=== PATIENT | female | born 1945 | race Caucasian/White ===

== ENCOUNTER 2017-12-22 16:04 | Emergency (ER) | payer MEDICARE ==
[2017-12-22 16:11] VITALS: TEMP 97.5
[2017-12-22] MEDS ORDERED: cloNIDine HCL 0.2 MG TAB PO STA (16:27)
--- NOTE | 2017-12-22 16:32 | ED ---
Recheck HPI - General Chief Complaint: Recheck/Abnormal Lab/Rx Stated Complaint: elevated bp Time Seen by Provider: 12/22/17 16:12 Source: patient Mode of arrival: ambulatory Limitations: no limitations - History of Present Illness Initial Comments: This patient is 72-year-old woman who presents because her blood pressure has been running high today. The patient states that she does normally take her blood pressure at home. She states that for the past couple of weeks it is been running around 140s over upper 50s to 60s. She states that she saw her physician, Dr. Galindo, and that a week or 10 days ago she was started on hydrochlorothiazide. She has a follow-up appointment with Dr. Galindo on Sunday to see if the medication needs to be adjusted. Today her blood pressure was running in the upper 140s, so she was checking the blood pressure about every hour and found that it was continuing to rise and for this reason she felt she should be evaluated. The patient denies having any associated symptoms. She is not having any pain including no headache, chest pain, back, or abdominal pain. The patient is not having any neurologic symptoms. She is not having any dyspnea, diaphoresis, nausea or vomiting, palpitations, lightheadedness or syncope. MD Complaint: other (Elevated blood pressure) -: hour(s) Symptoms Since Prior Visit: no new symptoms Associated Symptoms: none - Related Data Home Medications Medication Instructions Recorded Confirmed Ascorbic Acid [Vitamin C] 1,000 mg PO DAILY 12/22/17 12/22/17 Cholecalciferol (Vitamin D3) 2,000 unit PO DAILY 12/22/17 12/22/17 [Vitamin D3] Glucosam/[place]-Msm1/C/Markel/Bosw 1 tab PO DAILY 12/22/17 12/22/17 [Glucosamine-Chondroitin Tablet] Hydrochlorothiazide [Hydrodiuril] 25 mg PO DAILY 12/22/17 12/22/17 Iron(Unknown) 1 tab PO TUTH 12/22/17 12/22/17 Lecithin, Soy [Lecithin] 400 mg PO DAILY 12/22/17 12/22/17 Meloxicam [Mobic] 15 mg PO DAILY 12/22/17 12/22/17 [place]-3 Fatty Acids/Fish Oil [Fish 1 cap PO DAILY 05/12/18 05/12/18 Oil 1,000 mg Softgel] Omeprazole [PriLOSEC] 20 mg PO DAILY PRN 12/22/17 12/22/17 Selenium 100 mcg PO DAILY 12/22/17 12/22/17 Vitamin A(Unknown) 1 cap PO DAILY 12/22/17 12/22/17 Vitamin B Complex 1 cap PO DAILY 12/22/17 12/22/17 Vitamin E 250iu 500 unit PO DAILY 12/22/17 12/22/17 Allergies Allergy/AdvReac Type Severity Reaction Status Date / Time aspirin Allergy Unknown Verified 12/22/17 16:33 Penicillins Allergy Unknown Verified 12/22/17 16:33 Childhood Review of Systems ROS Statement: Those systems with pertinent positive or pertinent negative responses have been documented in the HPI. ROS Other: All systems not noted in ROS Statement are negative. Constitutional: Denies: weakness Eyes: Denies: vision change Respiratory: Denies: cough, dyspnea Cardiovascular: Denies: chest pain, palpitations, orthopnea, syncope Gastrointestinal: Denies: abdominal pain, nausea, vomiting Musculoskeletal: Denies: back pain Skin: Denies: rash Neurological: Denies: headache, weakness, numbness Past Medical History Past Medical History: No Reported History History of Any Multi-Drug Resistant Organisms: None Reported Past Surgical History: Orthopedic Surgery Additional Past Surgical History / Comment(s): rotator cuff bunion Past Psychological History: No Psychological Hx Reported Smoking Status: Never smoker Past Alcohol Use History: Rare Past Drug Use History: None Reported General Exam Limitations: no limitations General appearance: alert, in no apparent distress Head exam: Present: atraumatic, normocephalic Eye exam: Present: normal appearance. Absent: scleral icterus, conjunctival injection ENT exam: Present: normal oropharynx, mucous membranes moist Respiratory exam: Present: normal lung sounds bilaterally. Absent: respiratory distress, wheezes, rales, rhonchi, stridor Cardiovascular Exam: Present: regular rate, normal rhythm, normal heart sounds. Absent: systolic murmur, diastolic murmur, rubs, gallop GI/Abdominal exam: Present: soft. Absent: distended, tenderness, guarding, rebound, mass Extremities exam: Present: normal inspection, normal capillary refill. Absent: pedal edema, calf tenderness Back exam: Present: normal inspection Neurological exam: Present: alert Skin exam: Present: warm, dry, intact, normal color. Absent: rash Course Vital Signs 05/12/18 05/12/18 16:07 16:21 Temperature 97.5 F L Pulse Rate 83 Pulse Rate [ 74 Pulse Oximetery ] Respiratory 18 Rate Blood Pressure 196/86 O2 Sat by Pulse 99 Oximetry Medical Decision Making - Lab Data Result diagrams: 12/22/17 16:50 12/22/17 16:50 Lab Results 12/22/17 12/22/17 Range/Units 16:50 16:50 WBC 9.1 (3.8-10.6) k/uL RBC 4.87 (3.80-5.40) m/uL Hgb 13.5 (11.4-16.0) gm/dL Hct 39.2 (34.0-46.0) % MCV 80.5 (80.0-100.0) fL MCH 27.7 (25.0-35.0) pg MCHC 34.4 (31.0-37.0) g/dL RDW 12.8 (11.5-15.5) % Plt Count 321 (150-450) k/uL Neutrophils % 73 % Lymphocytes % 21 % Monocytes % 4 % Eosinophils % 1 % Basophils % 1 % Neutrophils # 6.6 (1.3-7.7) k/uL Lymphocytes # 1.9 (1.0-4.8) k/uL Monocytes # 0.3 (0-1.0) k/uL Eosinophils # 0.1 (0-0.7) k/uL Basophils # 0.0 (0-0.2) k/uL Sodium 131 L (137-145) mmol/L Potassium 3.8 (3.5-5.1) mmol/L Chloride 93 L (98-107) mmol/L Carbon Dioxide 27 (22-30) mmol/L Anion Gap 11 mmol/L BUN 16 (7-17) mg/dL Creatinine 0.63 (0.52-1.04) mg/dL Est GFR (CKD-EPI)AfAm >90 (>60 ml/min/1.73 sqM) Est GFR (CKD-EPI)NonAf >90 (>60 ml/min/1.73 sqM) Glucose 111 H (74-99) mg/dL Calcium 9.8 (8.4-10.2) mg/dL - EKG Data -: EKG Interpreted by Ar EKG shows normal: sinus rhythm, axis (normal), intervals (normal), QRS complexes (normal), ST-T waves (normal) Rate: normal (Rate approximate 72 bpm) Interpretation: normal EKG Disposition Clinical Impression: Hypertension Disposition: HOME SELF-CARE Condition: Good Instructions: Hypertension (ED) Is patient prescribed a controlled substance at d/c from ED?: No Referrals: James Galindo DO [Primary Care Provider] - 1-2 days
[2017-12-22 17:03] LABS: Basophils % (A) 1 %; Eosinophils # (A) 0.1 k/uL (0-0.7); Eosinophils % (A) 1 %; HCT 39.2 % (34.0-46.0); HGB 13.5 gm/dL (11.4-16.0); Lymphocytes # (A) 1.9 k/uL (1.0-4.8); Lymphocytes % (A) 21 %; MCH 27.7 pg (25.0-35.0); MCHC 34.4 g/dL (31.0-37.0); MCV 80.5 fL (80.0-100.0); Mean Platelet Volume 6.3; Monocytes # (A) 0.3 k/uL (0-1.0); Monocytes % (A) 4 %; Neutrophils # (A) 6.6 k/uL (1.3-7.7); Neutrophils % (A) 73 %; Platelet Count 321 k/uL (150-450); RBC 4.87 m/uL (3.80-5.40); RDW 12.8 % (11.5-15.5); WBC 9.1 k/uL (3.8-10.6)
[2017-12-22 17:12] LABS: Anion Gap 11 mmol/L; Blood Urea Nitrogen 16 mg/dL (7-17); Calcium 9.8 mg/dL (8.4-10.2); Carbon Dioxide 27 mmol/L (22-30); Chloride 93 mmol/L (98-107); Glucose 111 mg/dL (74-99); Potassium 3.8 mmol/L (3.5-5.1); Sodium 131 mmol/L (137-145)
[2017-12-22 17:33] VITALS: BP 133/66; PULSE 68; RESP 16
== END 2017-12-22 17:50 | disposition home or self-care (01) ==
LOC: EC 16:04
DX: I10 Essential (primary) hypertension (principal); Z79.1 Long term (current) use of non-steroidal anti-inflammatories (NSAID); Z79.899 Other long term (current) drug therapy; Z88.0 Allergy status to penicillin; Z88.6 Allergy status to analgesic agent
CPT/HCPCS: 36415; 80048; 84484; 85025; 93005; 99283

== ENCOUNTER 2019-02-22 13:44 | Emergency (ER) | payer MEDICARE ==
[2019-02-22 14:19] VITALS: RESP 18
--- NOTE | 2019-02-22 15:15 | ED ---
Headache HPI - General Chief Complaint: Headache Stated Complaint: Hypertensive Time Seen by Provider: 02/22/19 14:21 Mode of arrival: ambulatory Limitations: no limitations - History of Present Illness Initial Comments: 74-year-old female patient presents to the emergency department today for evaluation of elevated blood pressure. Patient states that over the last 2 days she has been having high blood pressures. Yesterday it was as high as 180 systolic. Patient states today she feels unwell. States that she has a mild headache and ringing in her left ear. Patient states that she does take amlodipine daily and has been taking as directed. States that she is having so me mild left-sided chest pain which she has been having for a while and has had evaluated in the past. Patient denies any shortness of breath. States she has felt decreased appetite but no nausea or vomiting. States she feels rundown and not able to do the activity she enjoys. She denies any blurred or double vision. Denies any numbness, tingling, weakness to the extremities. Patient denies any recent rash, fever, chills, abdominal pain, diarrhea, constipation, back pain, dizziness, hematuria, dysuria, urinary urgency, urinary frequency, or any other complaints. - Related Data Home Medications Medication Instructions Recorded Confirmed Ascorbic Acid [Vitamin C] 1,000 mg PO DAILY 12/22/17 12/22/17 Cholecalciferol (Vitamin D3) 2,000 unit PO DAILY 12/22/17 12/22/17 [Vitamin D3] Glucosam/[place]-Msm1/C/Markel/Bosw 1 tab PO DAILY 12/22/17 12/22/17 [Glucosamine-Chondroitin Tablet] Hydrochlorothiazide [Hydrodiuril] 25 mg PO DAILY 12/22/17 12/22/17 Iron(Unknown) 1 tab PO TUTH 12/22/17 12/22/17 Lecithin, Soy [Lecithin] 400 mg PO DAILY 12/22/17 12/22/17 Meloxicam [Mobic] 15 mg PO DAILY 12/22/17 12/22/17 [place]-3 Fatty Acids/Fish Oil [Fish 1 cap PO DAILY 12/22/17 12/22/17 Oil 1,000 mg Softgel] Omeprazole [PriLOSEC] 20 mg PO DAILY PRN 12/22/17 12/22/17 Selenium 100 mcg PO DAILY 12/22/17 12/22/17 Vitamin A(Unknown) 1 cap PO DAILY 12/22/17 12/22/17 Vitamin B Complex 1 cap PO DAILY 12/22/17 12/22/17 Vitamin E 250iu 500 unit PO DAILY 12/22/17 12/22/17 Previous Rx's Medication Instructions Recorded Ranitidine HCl [Zantac] 150 mg PO HS #30 tab 02/22/19 Allergies Allergy/AdvReac Type Severity Reaction Status Date / Time aspirin Allergy Unknown Verified 12/22/17 16:33 Penicillins Allergy Unknown Verified 12/22/17 16:33 Childhood Review of Systems ROS Statement: Those systems with pertinent positive or pertinent negative responses have been documented in the HPI. ROS Other: All systems not noted in ROS Statement are negative. Past Medical History Past Medical History: Hypertension History of Any Multi-Drug Resistant Organisms: None Reported Past Surgical History: Hernia Repair, Orthopedic Surgery Additional Past Surgical History / Comment(s): rotator cuff bunion Past Psychological History: No Psychological Hx Reported Smoking Status: Never smoker Past Alcohol Use History: Rare Past Drug Use History: None Reported General Exam Limitations: no limitations General appearance: alert, in no apparent distress, other (This is a well- developed, well-nourished adult female patient in no acute distress. Vital signs upon presentation are temperature 98.2F, pulse 69, respirations 18, blood pressure 148/84, pulse ox 99% on room air.) Eye exam: Present: normal appearance, PERRL, EOMI. Absent: scleral icterus, conjunctival injection, periorbital swelling ENT exam: Present: normal exam, normal oropharynx, mucous membranes moist Respiratory exam: Present: normal lung sounds bilaterally. Absent: respiratory distress, wheezes, rales, rhonchi, stridor Cardiovascular Exam: Present: regular rate, normal rhythm, normal heart sounds. Absent: systolic murmur, diastolic murmur, rubs, gallop, clicks GI/Abdominal exam: Present: soft, normal bowel sounds. Absent: distended, tenderness, guarding, rebound, rigid Neurological exam: Present: alert, oriented X3, CN II-XII intact, other (Strength in all 4 extremities is 5/5.) Psychiatric exam: Present: normal affect, normal mood Skin exam: Present: warm, dry, intact, normal color. Absent: rash Course Vital Signs 02/22/19 02/22/19 02/22/19 14:14 15:43 16:25 Temperature 98.3 F Pulse Rate 69 70 67 Respiratory 18 18 18 Rate Blood Pressure 148/84 146/91 149/75 O2 Sat by Pulse 99 98 99 Oximetry Medical Decision Making - Medical Decision Making 74-year-old female patient presents to the emergency department today for evaluation of elevated blood pressure. Patient states she is also experiencing a headache to the back and left side of her head. Patient states it is very mild headache. Denies that this is the worst headache of her life. Physical examination is unremarkable. She is neurologically intact with no focal deficits. She denies any nausea or vomiting. Denies any neck pain or stiffness. Labs reviewed and are unremarkable. Chest x-ray shows no acute cardio pulmonary process. Patient's blood pressure here in the emergency department has been consistently in the 140s systolic. She will be discharged home at this time to follow-up with her primary care physician for recheck in 1- 2 days. She is instructed to discuss referral to cardiology. She is instructed to keep a log of her blood pressures to submit to her physician for evaluation. Return parameters were discussed in detail. She verbalizes understanding and agrees with this plan. - Lab Data Result diagrams: 02/22/19 15:14 02/22/19 15:14 Lab Results 02/22/19 02/22/19 02/22/19 Range/Units 15:14 15:14 15:14 WBC 7.8 (3.8-10.6) k/uL RBC 4.84 (3.80-5.40) m/uL Hgb 13.1 (11.4-16.0) gm/dL Hct 40.5 (34.0-46.0) % MCV 83.7 (80.0-100.0) fL MCH 27.1 (25.0-35.0) pg MCHC 32.4 (31.0-37.0) g/dL RDW 13.6 (11.5-15.5) % Plt Count 335 (150-450) k/uL Neutrophils % 65 % Lymphocytes % 27 % Monocytes % 4 % Eosinophils % 1 % Basophils % 0 % Neutrophils # 5.1 (1.3-7.7) k/uL Lymphocytes # 2.1 (1.0-4.8) k/uL Monocytes # 0.3 (0-1.0) k/uL Eosinophils # 0.1 (0-0.7) k/uL Basophils # 0.0 (0-0.2) k/uL PT 9.8 (9.0-12.0) sec INR 0.9 (<1.2) APTT 22.7 (22.0-30.0) sec Sodium 135 L (137-145) mmol/L Potassium 4.3 (3.5-5.1) mmol/L Chloride 100 (98-107) mmol/L Carbon Dioxide 26 (22-30) mmol/L Anion Gap 9 mmol/L BUN 18 H (7-17) mg/dL Creatinine 0.67 (0.52-1.04) mg/dL Est GFR (CKD-EPI)AfAm >90 (>60 ml/min/1.73 sqM) Est GFR (CKD-EPI)NonAf 88 (>60 ml/min/1.73 sqM) Glucose 95 (74-99) mg/dL Calcium 9.8 (8.4-10.2) mg/dL Magnesium 2.2 (1.6-2.3) mg/dL Total Bilirubin 0.3 (0.2-1.3) mg/dL AST 25 (14-36) U/L ALT 21 (9-52) U/L Alkaline Phosphatase 73 (38-126) U/L Troponin I (0.000-0.034) ng/mL Total Protein 6.9 (6.3-8.2) g/dL Albumin 4.3 (3.5-5.0) g/dL Urine Color Urine Appearance (Clear) Urine pH (5.0-8.0) Ur Specific [place] (1.001-1.035) Urine Protein (Negative) Urine Glucose (UA) (Negative) Urine Ketones (Negative) Urine Blood (Negative) Urine Nitrite (Negative) Urine Bilirubin (Negative) Urine Urobilinogen (<2.0) mg/dL Ur Leukocyte Esterase (Negative) 02/22/19 02/22/19 Range/Units 15:14 15:14 WBC (3.8-10.6) k/uL RBC (3.80-5.40) m/uL Hgb (11.4-16.0) gm/dL Hct (34.0-46.0) % MCV (80.0-100.0) fL MCH (25.0-35.0) pg MCHC (31.0-37.0) g/dL RDW (11.5-15.5) % Plt Count (150-450) k/uL Neutrophils % % Lymphocytes % % Monocytes % % Eosinophils % % Basophils % % Neutrophils # (1.3-7.7) k/uL Lymphocytes # (1.0-4.8) k/uL Monocytes # (0-1.0) k/uL Eosinophils # (0-0.7) k/uL Basophils # (0-0.2) k/uL PT (9.0-12.0) sec INR (<1.2) APTT (22.0-30.0) sec Sodium (137-145) mmol/L Potassium (3.5-5.1) mmol/L Chloride (98-107) mmol/L Carbon Dioxide (22-30) mmol/L Anion Gap mmol/L BUN (7-17) mg/dL Creatinine (0.52-1.04) mg/dL Est GFR (CKD-EPI)AfAm (>60 ml/min/1.73 sqM) Est GFR (CKD-EPI)NonAf (>60 ml/min/1.73 sqM) Glucose (74-99) mg/dL Calcium (8.4-10.2) mg/dL Magnesium (1.6-2.3) mg/dL Total Bilirubin (0.2-1.3) mg/dL AST (14-36) U/L ALT (9-52) U/L Alkaline Phosphatase (38-126) U/L Troponin I <0.012 (0.000-0.034) ng/mL Total Protein (6.3-8.2) g/dL Albumin (3.5-5.0) g/dL Urine Color Light Yellow Urine Appearance Clear (Clear) Urine pH 5.5 (5.0-8.0) Ur Specific [place] 1.003 (1.001-1.035) Urine Protein Negative (Negative) Urine Glucose (UA) Negative (Negative) Urine Ketones Trace H (Negative) Urine Blood Negative (Negative) Urine Nitrite Negative (Negative) Urine Bilirubin Negative (Negative) Urine Urobilinogen <2.0 (<2.0) mg/dL Ur Leukocyte Esterase Negative (Negative) - EKG Data -: EKG Interpreted by Me EKG Comments: EKG obtained at 1508 shows normal sinus rhythm with a ventricular rate is 67, ND interval 148, QRS duration 84, QTC 416, QTC 439. No evidence of ST elevation or depression. - Radiology Data Radiology results: report reviewed, image reviewed Two-view x-ray of the chest is obtained. Report was reviewed in its entirety. Impression by Dr. Wallace shows no acute cardiopulmonary process. Disposition Clinical Impression: Hypertension, Headache Disposition: HOME SELF-CARE Condition: Good Instructions (If sedation given, give patient instructions): Acute Headache (ED), Hypertension (ED) Additional Instructions: Follow-up with your primary care physician for recheck in 1-2 days. Keep a log of your blood pressures for her to review. Take medications as directed. Return to the emergency department immediately for any new, worsening, or concerning symptoms. Prescriptions: Ranitidine HCl [Zantac] 150 mg PO HS #30 tab Is patient prescribed a controlled substance at d/c from ED?: No Referrals: Grace Machuca MD [Primary Care Provider] - 1-2 days Time of Disposition: 16:31
[2019-02-22 15:31] LABS: Basophils % (A) 0 %; Eosinophils # (A) 0.1 k/uL (0-0.7); Eosinophils % (A) 1 %; HCT 40.5 % (34.0-46.0); HGB 13.1 gm/dL (11.4-16.0); Lymphocytes # (A) 2.1 k/uL (1.0-4.8); Lymphocytes % (A) 27 %; MCH 27.1 pg (25.0-35.0); MCHC 32.4 g/dL (31.0-37.0); MCV 83.7 fL (80.0-100.0); Mean Platelet Volume 6.1; Monocytes # (A) 0.3 k/uL (0-1.0); Monocytes % (A) 4 %; Neutrophils # (A) 5.1 k/uL (1.3-7.7); Neutrophils % (A) 65 %; Platelet Count 335 k/uL (150-450); RBC 4.84 m/uL (3.80-5.40); RDW 13.6 % (11.5-15.5); WBC 7.8 k/uL (3.8-10.6)
--- NOTE | 2019-02-22 15:32 | XR ---
EXAMINATION TYPE: XR chest 2V DATE OF EXAM: 02/22/2019 COMPARISON: 01/22/2019 INDICATION: Chest pain TECHNIQUE: Frontal and lateral views of the chest are obtained. FINDINGS: The heart size is normal. The pulmonary vasculature is normal. The lungs are clear. IMPRESSION: 1. No acute pulmonary process.
[2019-02-22 15:33] LABS: Appearance,Urine Clear (Clear); Bilirubin,Urine Negative (Negative); Blood,Urine Negative (Negative); Color,Urine Light Yellow; Glucose,Urine (UA) Negative (Negative); Ketones,Urine Trace (Negative); Leukocyte Esterase,Urine Negative (Negative); Nitrite,Urine Negative (Negative); PH, Urine 5.5 (5.0-8.0); Protein,Urine Negative (Negative); Specific Gravity,Urine 1.003 (1.001-1.035); Urobilinogen,Urine <2.0 mg/dL (<2.0)
[2019-02-22 15:42] LABS: INR 0.9 (<1.2); Partial Thromboplastin Time 22.7 sec (22.0-30.0); Prothrombin Time 9.8 sec (9.0-12.0)
[2019-02-22 15:43] LABS: ALT 21 U/L (9-52); AST 25 U/L (14-36); African American GFR (CKD) >90 (>60 ml/min/1.73 sqM); Albumin 4.3 g/dL (3.5-5.0); Alkaline Phosphatase 73 U/L (38-126); Anion Gap 9 mmol/L; Blood Urea Nitrogen 18 mg/dL (7-17); Calcium 9.8 mg/dL (8.4-10.2); Carbon Dioxide 26 mmol/L (22-30); Chloride 100 mmol/L (98-107); Glucose 95 mg/dL (74-99); Magnesium 2.2 mg/dL (1.6-2.3); Potassium 4.3 mmol/L (3.5-5.1); Sodium 135 mmol/L (137-145); Total Bilirubin 0.3 mg/dL (0.2-1.3); Total Protein 6.9 g/dL (6.3-8.2)
[2019-02-22 16:49] VITALS: BP 141/82; PULSE 63; TEMP 98
== END 2019-02-22 16:48 | disposition home or self-care (01) ==
LOC: EC 13:44
DX: I10 Essential (primary) hypertension (principal); R51 Headache; H93.12 Tinnitus, left ear; R07.9 Chest pain, unspecified; R63.8 Other symptoms and signs concerning food and fluid intake; Z88.0 Allergy status to penicillin; Z88.6 Allergy status to analgesic agent; Z79.1 Long term (current) use of non-steroidal anti-inflammatories (NSAID); Z79.899 Other long term (current) drug therapy
CPT/HCPCS: 36415; 71046; 80053; 81003; 83735; 84484; 85025; 85610; 85730; 93005; 99284

== ENCOUNTER 2020-06-02 21:52 | Observation (INO) | payer MEDICARE ==
[2020-06-02] MEDS ORDERED: SODIUM CHLORIDE 0.9% 500 ML 500 ML IV STA (22:39)
[2020-06-02] MEDS ORDERED: MAG HYDROX/AL HYDROX/SIMETH 30 ML, HYOSCYAMINE ELIXIR 10 ML, LIDOCAINE VISCOUS 2% 10 ML PO STA ×3 (22:39)
[2020-06-02] MEDS ORDERED: FAMOTIDINE 20 MG/2 ML VIAL IV STA (22:39)
[2020-06-02 22:59] LABS: Basophils # (A) 0.1 k/uL (0-0.2); Basophils % (A) 1 %; Eosinophils # (A) 0.1 k/uL (0-0.7); Eosinophils % (A) 1 %; HCT 41.1 % (34.0-46.0); HGB 13.4 gm/dL (11.4-16.0); Lymphocytes # (A) 1.3 k/uL (1.0-4.8); Lymphocytes % (A) 17 %; MCH 28.5 pg (25.0-35.0); MCHC 32.6 g/dL (31.0-37.0); MCV 87.3 fL (80.0-100.0); Mean Platelet Volume 6.6; Monocytes # (A) 0.4 k/uL (0-1.0); Monocytes % (A) 5 %; Neutrophils # (A) 5.6 k/uL (1.3-7.7); Neutrophils % (A) 74 %; Platelet Count 296 k/uL (150-450); RBC 4.71 m/uL (3.80-5.40); RDW 13.1 % (11.5-15.5); WBC 7.6 k/uL (3.8-10.6)
--- NOTE | 2020-06-02 23:06 | XR ---
EXAMINATION TYPE: XR chest 2V DATE OF EXAM: 06/02/2020 COMPARISON: 02/22/2019 HISTORY: Chest pain TECHNIQUE: FINDINGS: Heart and mediastinum are normal. Lungs are clear. Diaphragm is normal. Bony thorax appears normal. IMPRESSION: Normal chest. No change.
[2020-06-02 23:08] LABS: ALT 18 U/L (4-34); AST 28 U/L (14-36); African American GFR (CKD) >90 (>60 ml/min/1.73 sqM); Albumin 4.2 g/dL (3.5-5.0); Alkaline Phosphatase 64 U/L (38-126); Amylase 64 U/L (30-110); Anion Gap 8 mmol/L; Blood Urea Nitrogen 19 mg/dL (7-17); Calcium 9.2 mg/dL (8.4-10.2); Carbon Dioxide 24 mmol/L (22-30); Chloride 104 mmol/L (98-107); Glucose 110 mg/dL (74-99); Non-African American GFR(CKD) 89 (>60 ml/min/1.73 sqM); Potassium 4.2 mmol/L (3.5-5.1); Sodium 136 mmol/L (137-145); Total Bilirubin 0.4 mg/dL (0.2-1.3); Total Protein 6.5 g/dL (6.3-8.2)
[2020-06-02 23:44] LABS: Appearance,Urine Clear (Clear); Bilirubin,Urine Negative (Negative); Blood,Urine Negative (Negative); Color,Urine Light Yellow; Glucose,Urine (UA) Negative (Negative); Ketones,Urine 1+ (Negative); Leukocyte Esterase,Urine Trace (Negative); Mucus,Urine Rare /hpf; Nitrite,Urine Negative (Negative); Protein,Urine Negative (Negative); Specific Gravity,Urine 1.009 (1.001-1.035); Squamous Epithelial Cell,Urine <1 /hpf (0-4); Urobilinogen,Urine <2.0 mg/dL (<2.0); WBC,Urine 4 /hpf (0-5)
[2020-06-02] MEDS ORDERED: NALOXONE 0.4 MG/ML 1 ML VIAL IV PRN (23:55)
[2020-06-02] MEDS ORDERED: ONDANSETRON 4 MG/2 ML VIAL IVP PRN (23:55)
--- NOTE | 2020-06-02 23:57 | ED ---
General Adult HPI - General Source: patient Mode of arrival: ambulatory Limitations: no limitations <Holli Liz - Last Filed: 06/02/20 23:57> <Reuben Pineda - Last Filed: 06/06/20 07:31> - General Chief complaint: Abdominal Pain Stated complaint: heartburn/not feeling well Time Seen by Provider: 06/02/20 22:05 - History of Present Illness Initial comments: 75-year-old female patient presents to the emergency department today for evaluation of left-sided chest discomfort, indigestion, and sweats. Patient states she's been feeling unwell throughout the day today. States she feels nauseated and has had discomfort to the left side of her face. Patient does report 2 episodes of shortness of breath while working at [employer] on . Patient states this is unusual for her. Patient states symptoms did worsen after eating. She does have a history of hypertension. Denies history of smoking or cardiac disease. States that she has had acid reflux in the past but is been a long time. Denies any pain in her back. Denies any dizziness or weakness. Patient denies any recent rash, fever, chills, cough, abdominal pain, vomiting, diarrhea, constipation, hematuria, dysuria, urinary urgency, urinary frequency, headache, visual changes, or any other complaints. (Holli Liz) - Related Data Home Medications Medication Instructions Recorded Confirmed Ascorbic Acid [Vitamin C] 1,000 mg PO DAILY 12/22/17 06/02/20 Cholecalciferol (Vitamin D3) 2,000 unit PO DAILY 12/22/17 06/02/20 [Vitamin D3] Lecithin, Soy [Lecithin] 400 mg PO DAILY 12/22/17 06/02/20 [place]-3 Fatty Acids/Fish Oil [Fish 1 cap PO DAILY 12/22/17 06/02/20 Oil 1,000 mg Softgel] Selenium 100 mcg PO DAILY 12/22/17 06/02/20 Vitamin B Complex 1 cap PO DAILY 12/22/17 06/02/20 Meloxicam [Mobic] 7.5 mg PO BID PRN 06/02/20 06/02/20 Multivitamins, Thera [Multivitamin 1 tab PO DAILY 06/02/20 06/02/20 (formulary)] Vitamin A 8,000 unit PO DAILY 06/02/20 06/02/20 amLODIPine [Norvasc] 5 mg PO DAILY 06/02/20 06/02/20 Previous Rx's Medication Instructions Recorded Pantoprazole Sodium [Protonix] 40 mg PO CONTINUOUS #30 tablet. 06/03/20 Allergies Allergy/AdvReac Type Severity Reaction Status Date / Time aspirin Allergy Unknown Verified 06/02/20 22:46 Penicillins Allergy Unknown Verified 06/02/20 22:46 Childhood Review of Systems ROS Other: All systems not noted in ROS Statement are negative. <Holli Liz - Last Filed: 06/02/20 23:57> ROS Other: All systems not noted in ROS Statement are negative. <Reuben Pineda - Last Filed: 06/06/20 07:31> ROS Statement: Those systems with pertinent positive or pertinent negative responses have been documented in the HPI. Past Medical History Past Medical History: GERD/Reflux, Hypertension History of Any Multi-Drug Resistant Organisms: None Reported Past Surgical History: Hernia Repair, Orthopedic Surgery Additional Past Surgical History / Comment(s): rotator cuff bunion Past Psychological History: No Psychological Hx Reported Smoking Status: Never smoker Past Alcohol Use History: Rare Past Drug Use History: None Reported <Holli Liz - Last Filed: 06/02/20 23:57> General Exam Limitations: no limitations General appearance: alert, in no apparent distress, other (This is a well- developed, well-nourished adult female patient in no acute distress. Vital signs upon presentation are temperature 97.5F, pulse 78, respirations 20, blood pressure 146/78, pulse ox 99% on room air.) ENT exam: Present: normal exam, normal oropharynx, mucous membranes moist Respiratory exam: Present: normal lung sounds bilaterally. Absent: respiratory distress, wheezes, rales, rhonchi, stridor Cardiovascular Exam: Present: regular rate, normal rhythm, normal heart sounds. Absent: systolic murmur, diastolic murmur, rubs, gallop, clicks GI/Abdominal exam: Present: soft, normal bowel sounds. Absent: distended, tenderness, guarding, rebound, rigid Neurological exam: Present: alert, oriented X3, CN II-XII intact Psychiatric exam: Present: normal affect, normal mood Skin exam: Present: warm, dry, intact, normal color. Absent: rash <Holli Liz - Last Filed: 06/02/20 23:57> Course Vital Signs 06/02/20 06/02/20 21:52 23:59 Temperature 97.5 F L Pulse Rate 78 67 Respiratory 20 16 Rate Blood Pressure 146/78 140/68 O2 Sat by Pulse 99 97 Oximetry EKG Findings - EKG Comments: EKG Findings:: EKG obtained at 2214 shows normal sinus rhythm with a ventricular rate is 71, [place] interval 140, QRS duration 78, QT 424, QTC 460. No evidence of ST elevation or depression. <Holli Liz - Last Filed: 06/02/20 23:57> Medical Decision Making - Lab Data Result diagrams: 06/02/20 22:50 06/02/20 22:50 - Radiology Data Radiology results: report reviewed, image reviewed <Holli Liz - Last Filed: 06/02/20 23:57> - Lab Data Result diagrams: 06/02/20 22:50 06/02/20 22:50 <Reuben Pineda - Last Filed: 06/06/20 07:31> - Medical Decision Making 75-year-old female patient presented to the emergency department today for evaluation of left-sided chest discomfort, indigestion, sweats, and left-sided facial discomfort. Physical examination did reveal mild midepigastric tenderness. Labs reviewed and are unremarkable. Initial troponins negative. EKG is unremarkable. Patient will be admitted to the hospital for observation. We'll repeat troponin, echo tomorrow. (Holli Liz) I saw this patient in conjunction with the physician rehabilitation assistant. I performed independent history and physical exam. Agree with case management. (Reuben Pineda) - Lab Data Lab Results 06/02/20 06/02/20 06/02/20 Range/Units 22:50 22:50 22:50 WBC 7.6 (3.8-10.6) k/uL RBC 4.71 (3.80-5.40) m/uL Hgb 13.4 (11.4-16.0) gm/dL Hct 41.1 (34.0-46.0) % MCV 87.3 (80.0-100.0) fL MCH 28.5 (25.0-35.0) pg MCHC 32.6 (31.0-37.0) g/dL RDW 13.1 (11.5-15.5) % Plt Count 296 (150-450) k/uL Neutrophils % 74 % Lymphocytes % 17 % Monocytes % 5 % Eosinophils % 1 % Basophils % 1 % Neutrophils # 5.6 (1.3-7.7) k/uL Lymphocytes # 1.3 (1.0-4.8) k/uL Monocytes # 0.4 (0-1.0) k/uL Eosinophils # 0.1 (0-0.7) k/uL Basophils # 0.1 (0-0.2) k/uL Sodium 136 L (137-145) mmol/L Potassium 4.2 (3.5-5.1) mmol/L Chloride 104 (98-107) mmol/L Carbon Dioxide 24 (22-30) mmol/L Anion Gap 8 mmol/L BUN 19 H (7-17) mg/dL Creatinine 0.63 (0.52-1.04) mg/dL Est GFR (CKD-EPI)AfAm >90 (>60 ml/min/1.73 sqM) Est GFR (CKD-EPI)NonAf 89 (>60 ml/min/1.73 sqM) Glucose 110 H (74-99) mg/dL Calcium 9.2 (8.4-10.2) mg/dL Total Bilirubin 0.4 (0.2-1.3) mg/dL AST 28 (14-36) U/L ALT 18 (4-34) U/L Alkaline Phosphatase 64 (38-126) U/L Troponin I <0.012 (0.000-0.034) ng/mL Total Protein 6.5 (6.3-8.2) g/dL Albumin 4.2 (3.5-5.0) g/dL Amylase 64 (30-110) U/L Lipase 127 (23-300) U/L Urine Color Urine Appearance (Clear) Urine pH (5.0-8.0) Ur Specific [place] (1.001-1.035) Urine Protein (Negative) Urine Glucose (UA) (Negative) Urine Ketones (Negative) Urine Blood (Negative) Urine Nitrite (Negative) Urine Bilirubin (Negative) Urine Urobilinogen (<2.0) mg/dL Ur Leukocyte Esterase (Negative) Urine WBC (0-5) /hpf Ur Squamous Epith Cells (0-4) /hpf Urine Mucus (None) /hpf 06/02/20 Range/Units 23:24 WBC (3.8-10.6) k/uL RBC (3.80-5.40) m/uL Hgb (11.4-16.0) gm/dL Hct (34.0-46.0) % MCV (80.0-100.0) fL MCH (25.0-35.0) pg MCHC (31.0-37.0) g/dL RDW (11.5-15.5) % Plt Count (150-450) k/uL Neutrophils % % Lymphocytes % % Monocytes % % Eosinophils % % Basophils % % Neutrophils # (1.3-7.7) k/uL Lymphocytes # (1.0-4.8) k/uL Monocytes # (0-1.0) k/uL Eosinophils # (0-0.7) k/uL Basophils # (0-0.2) k/uL Sodium (137-145) mmol/L Potassium (3.5-5.1) mmol/L Chloride (98-107) mmol/L Carbon Dioxide (22-30) mmol/L Anion Gap mmol/L BUN (7-17) mg/dL Creatinine (0.52-1.04) mg/dL Est GFR (CKD-EPI)AfAm (>60 ml/min/1.73 sqM) Est GFR (CKD-EPI)NonAf (>60 ml/min/1.73 sqM) Glucose (74-99) mg/dL Calcium (8.4-10.2) mg/dL Total Bilirubin (0.2-1.3) mg/dL AST (14-36) U/L ALT (4-34) U/L Alkaline Phosphatase (38-126) U/L Troponin I (0.000-0.034) ng/mL Total Protein (6.3-8.2) g/dL Albumin (3.5-5.0) g/dL Amylase (30-110) U/L Lipase (23-300) U/L Urine Color Light Yellow Urine Appearance Clear (Clear) Urine pH 5.0 (5.0-8.0) Ur Specific [place] 1.009 (1.001-1.035) Urine Protein Negative (Negative) Urine Glucose (UA) Negative (Negative) Urine Ketones 1+ H (Negative) Urine Blood Negative (Negative) Urine Nitrite Negative (Negative) Urine Bilirubin Negative (Negative) Urine Urobilinogen <2.0 (<2.0) mg/dL Ur Leukocyte Esterase Trace H (Negative) Urine WBC 4 (0-5) /hpf Ur Squamous Epith Cells <1 (0-4) /hpf Urine Mucus Rare H (None) /hpf - Radiology Data Two-view x-ray of the chest is obtained. Report is reviewed in its entirety. Impression by Dr. Dodson shows normal chest. No change. (Holli Liz) Disposition Decision to Admit Reason: Admit from EC Decision Date: 06/02/20 Decision Time: 23:57 <Holli Liz - Last Filed: 06/02/20 23:57> <Reuben Pineda - Last Filed: 06/06/20 07:31> Clinical Impression: Chest pain, Indigestion Disposition: ADMITTED IP TO THIS [facility] Condition: Serious
[2020-06-03 00:01] VITALS: RESP 16
[2020-06-03] MEDS ORDERED: INFLUENZA VACCINE (6 MOS+) 60 MCG/0.5 ML SYRINGE IM ONE (08:14)
[2020-06-03] MEDS ORDERED: amLODIPine 5 MG TAB PO SCH (09:00)
[2020-06-03] MEDS ORDERED: REGADENOSON 0.4 MG/5 ML SYRINGE IV ONE (09:41)
[2020-06-03] MEDS ORDERED: CAFFEINE CITRATE 60 MG/3 ML VIAL IV PRN (09:41)
[2020-06-03] MEDS ORDERED: AMINOPHYLLINE 500 MG/20 ML VIAL IV PRN (09:41)
--- NOTE | 2020-06-03 10:59 | P.CRDCN ---
History of Present Illness Consult date: 06/03/20 History of present illness: CHIEF COMPLAINT: Chest pain HISTORY OF PRESENT ILLNESS: This is a 75-year old female with a past medical history significant for hypertension and GERD. Patient does not follow up outpatient with a homemaker companion and denies any previous cardiac history. We have been asked to see the patient in consultation for chest pain. Patient examined this morning at the bedside. 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 She states she woke up yesterday with what she thought was acid reflux. She reports she began having some midsternal chest discomfort. She denies any radiation of the pain. She denies shortness of breath. She states that she felt chills and feverish but took her temperature at home and did not have a fever. She states the pain is worse with deep inspiration. She denies pain with palpation. Patient states she had a stress test many years ago which was negative to her knowledge. No previous history of cardiac catheterization. DIAGNOSTICS: EKG reveals sinus rhythm Chest xray no acute process Laboratory data: WBC 7.6. Hemoglobin 13.4. Platelet count 296. Sodium 136. Potassium 4.2. BUN 19. Creatinine 0.63. Troponin negative 3. Current home cardiac medications include Norvasc 5 mg daily REVIEW OF SYSTEMS: At the time of my exam: CONSTITUTIONAL: Denies fever or chills. HEENT: Denies blurred vision, vision changes, or eye pain. Denies hemoptysis CARDIOVASCULAR: Reports chest discomfort with deep inspiration. Denies orthopnea, PND or palpitations RESPIRATORY: No shortness of breath. GASTROINTESTINAL: Denies abdominal pain. Denies nausea or vomiting. HEMATOLOGIC: Denies bleeding disorders. GENITOURINARY: Denies any blood in urine. SKIN: Denies pruitis. Denies rash. PHYSICAL EXAM: VITAL SIGNS: Reviewed. GENERAL: Well-developed in no acute distress. HEENT: Head is normocephalic. Pupils are equal, round. Sclerae anicteric. Mucous membranes of the mouth are moist. Neck supple. No JVD or thyromegaly LUNGS: Respirations even and unlabored. Lungs essentially clear to auscultation bilaterally. HEART: Regular rate and rhythm. S1 and S2 heard. ABDOMEN: Soft. Nondistended. Nontender. EXTREMITIES: Normal range of motion. No clubbing or cyanosis. Peripheral pulses intact. No lower extremity edema NEUROLOGIC: Awake and alert. Oriented x 3. ASSESSMENT: Chest pain, atypical Hypertension PLAN: Resume Norvasc Obtain 2D echo to assess cardiac structure and function Patients pain appears to be noncardiac and likely pleuritic in nature. However, will obtain [place] scan stress test. If stress test is negative and 2-D echo does not show any significant abnormalities, patient may be discharged home from a cardiac perspective Nurse practitioner note has been reviewed by physician. Signing provider agrees with the documented findings, assessment, and plan of care. Past Medical History Past Medical History: GERD/Reflux, Hypertension History of Any Multi-Drug Resistant Organisms: None Reported Past Surgical History: Hernia Repair, Orthopedic Surgery Additional Past Surgical History / Comment(s): rotator cuff bunion Past Anesthesia/Blood Transfusion Reactions: No Reported Reaction Past Psychological History: No Psychological Hx Reported Smoking Status: Never smoker Past Alcohol Use History: Rare Past Drug Use History: None Reported Medications and Allergies Home Medications Medication Instructions Recorded Confirmed Type Ascorbic Acid [Vitamin C] 1,000 mg PO DAILY 12/22/17 06/02/20 History Cholecalciferol (Vitamin D3) 2,000 unit PO DAILY 12/22/17 06/02/20 History [Vitamin D3] Lecithin, Soy [Lecithin] 400 mg PO DAILY 12/22/17 06/02/20 History [place]-3 Fatty Acids/Fish Oil [Fish 1 cap PO DAILY 12/22/17 06/02/20 History Oil 1,000 mg Softgel] Selenium 100 mcg PO DAILY 12/22/17 06/02/20 History Vitamin B Complex 1 cap PO DAILY 12/22/17 06/02/20 History Meloxicam [Mobic] 7.5 mg PO BID PRN 06/02/20 06/02/20 History Multivitamins, Thera [Multivitamin 1 tab PO DAILY 06/02/20 06/02/20 History (formulary)] Vitamin A 8,000 unit PO DAILY 06/02/20 06/02/20 History amLODIPine [Norvasc] 5 mg PO DAILY 06/02/20 06/02/20 History Allergies Allergy/AdvReac Type Severity Reaction Status Date / Time aspirin Allergy Unknown Verified 06/02/20 22:46 Penicillins Allergy Unknown Verified 06/02/20 22:46 Childhood Physical Exam Vitals: Vital Signs Temp Pulse Pulse Resp BP BP Pulse Ox 06/03/20 03:10 97.9 F 68 121/68 99 06/03/20 00:50 97.7 F 71 147/70 99 06/02/20 23:59 67 16 140/68 97 06/02/20 21:52 97.5 F L 78 20 146/78 99 Intake and Output 06/02/20 06/03/20 06/03/20 22:59 06:59 14:59 Output Total 350 Balance -350 Output: Urine 350 Other: Voiding Method Toilet # Voids 1 Weight 56.245 kg 56.245 kg Results 06/02/20 22:50 06/02/20 22:50 Cardiac Enzymes 06/02/20 06/02/20 06/03/20 Range/Units 22:50 22:50 02:38 AST 28 (14-36) U/L Troponin I <0.012 <0.012 (0.000-0.034) ng/mL 06/03/20 Range/Units 05:31 AST (14-36) U/L Troponin I <0.012 (0.000-0.034) ng/mL CBC 06/02/20 Range/Units 22:50 WBC 7.6 (3.8-10.6) k/uL RBC 4.71 (3.80-5.40) m/uL Hgb 13.4 (11.4-16.0) gm/dL Hct 41.1 (34.0-46.0) % Plt Count 296 (150-450) k/uL Comprehensive Metabolic Panel 06/02/20 Range/Units 22:50 Sodium 136 L (137-145) mmol/L Potassium 4.2 (3.5-5.1) mmol/L Chloride 104 (98-107) mmol/L Carbon Dioxide 24 (22-30) mmol/L BUN 19 H (7-17) mg/dL Creatinine 0.63 (0.52-1.04) mg/dL Glucose 110 H (74-99) mg/dL Calcium 9.2 (8.4-10.2) mg/dL AST 28 (14-36) U/L ALT 18 (4-34) U/L Alkaline Phosphatase 64 (38-126) U/L Total Protein 6.5 (6.3-8.2) g/dL Albumin 4.2 (3.5-5.0) g/dL Current Medications Generic Name Dose Route Start Last Admin Trade Name Freq PRN Reason Stop Dose Admin Amlodipine Besylate 5 mg 06/03/20 09:00 Amlodipine 5 Mg Tab PO DAILY JUAN Naloxone HCl 0.2 mg 06/02/20 23:55 Naloxone 0.4 Mg/Ml 1 Ml Vial IV Q2M PRN Opioid Reversal Ondansetron HCl 4 mg 06/02/20 23:55 Ondansetron 4 Mg/2 Ml Vial IVP Q8HR PRN Nausea And Vomiting Intake and Output 06/02/20 06/03/20 06/03/20 22:59 06:59 14:59 Output Total 350 Balance -350 Output: Urine 350 Other: Voiding Method Toilet # Voids 1 Weight 56.245 kg 56.245 kg 06/02/20 22:50 06/02/20 22:50
--- NOTE | 2020-06-03 13:00 | ECHOF ---
Referral Reason:Chest pain MEASUREMENTS -------- HEIGHT: 157.5 cm WEIGHT: 56.2 kg BP: 121/68 RVIDd: 3.8 cm (< 3.3) IVSd: 1.0 cm (0.6 - 1.1) LVIDd: 3.6 cm (3.9 - 5.3) LVPWd: 1.3 cm (0.6 - 1.1) IVSs: 1.2 cm LVIDs: 2.2 cm LVPWs: 1.3 cm LAESV Index (A-L): 33.53 ml/m Ao Diam: 2.6 cm (2.0 - 3.7) AV Cusp: 1.9 cm (1.5 - 2.6) MV EXCURSION: 16.216 mm (> 18.000) MV EF SLOPE: 104 mm/s (70 - 150) EPSS: 0.1 cm MV E Daniel: 0.66 m/s MV DecT: 265 ms MV A Daniel: 0.82 m/s MV E/A Ratio: 0.81 RAP: 5.00 mmHg RVSP: 34.33 mmHg FINDINGS -------- This was a technically adequate study. The left ventricular size is normal. There is mild concentric left ventricular hypertrophy. Overa ll left ventricular systolic function is low-normal with, an EF between 50 - 55 %. The diastolic fi lling pattern is normal for the age of the patient 7.73. The right ventricle is normal in size. LA is midly dilated 29-33ml/m2. The right atrial size is normal. Interatrial and interventricular septum intact. Trace amount of aortic regurgitation. There is no evidence of aortic stenosis. Mild mitral regurgitation is present. [id number] tricuspid regurgitation present. There is no evidence of pulmonary hypertension. The right ventricular systolic pressure, as measured by Doppler, is 34.33mmHg. There is no pulmonic regurgitation present. The aortic root size is normal. IVC Not well visulized. There is no pericardial effusion. CONCLUSIONS -------- 1. The left ventricular size is normal. 2. There is mild concentric left ventricular hypertrophy. 3. Overall left ventricular systolic function is low-normal with, an EF between 50 - 55 %. 4. LA is midly dilated 29-33ml/m2. 5. Trace amount of aortic regurgitation. 6. Mild mitral regurgitation is present. 7. [id number] tricuspid regurgitation present. 8. The right ventricular systolic pressure, as measured by Doppler, is 34.33mmHg. [employer]: Ashtyn Leone RDCS
--- NOTE | 2020-06-03 14:16 | P.HPIM ---
History of Present Illness H&P Date: 06/03/20 HISTORY AND PHYSICAL AND DISCHARGE SUMMARY: HISTORY OF PRESENT ILLNESS This is a 75-year-old female patient of Dr. Machuca with past medical history of gastroesophageal reflux disease and hypertension. Patient states that starting yesterday and most the day she had chest pain that she thought was related to acid reflux. She states her stomach was bothering her all day. She had episodes of chills sweeping over her body but no fever. She was concerned about the chills and came into the hospital. 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 She states she had similar symptoms years ago. She denies any radiation of the pain. Patient came into [facility] emergency center for evaluation. CBC was normal. Sodium 136, potassium 4.2, chloride 104, CO2 24, BUN 19 and creatinine 0.63. Blood sugar 110. Troponin negative on 3 draws. Lipase 127. Chest x-ray was normal. EKG was in normal sinus rhythm. No acute ST changes. Patient placed in the observation unit and cardiology consult requested. Echocardiogram reveals EF of 50-55%, concentric left hypertrophy, mild mitral regurgitation, [id number] tricuspid regurgitation. Lexiscan stress test reveals no reversible ischemia. Patient be discharged home today in stable condition. REVIEW OF SYSTEMS Constitutional: No fever, no chills, no night sweats. No weight change. No weakness, fatigue or lethargy. No daytime sleepiness. EENT: No headache. No blurred vision or double vision, no loss of vision. No loss of Hearing, no ringing in the ears, no dizziness. No nasal drainage or congestion. No epistaxis. No sore throat. Lungs: No shortness of breath, cough, no sputum production. No wheezing. Cardiovascular: Reports chest pain, chest pain with inspiration. no lower extre mity edema. No palpitations. No paroxysmal nocturnal dyspnea. No orthopnea. No lightheadedness or dizziness. No syncopal episodes. Abdominal: No abdominal pain. Reports gastric reflux. No nausea, vomiting. No diarrhea. No constipation. No bloody or tarry stools.. No loss of appetite. Genitourinary: No dysuria, increased frequency, urgency. No urinary retention. Musculoskeletal: No myalgias. No muscle weakness, no gait dysfunction, no frequent falls. No back pain. No neck pain. Integumentary: No wounds, no lesions. No rash or pruritus. No unusual bruising. No change in hair or nails. Neurologic: No aphasia. No facial droop. No change in mentation. No head injury. No headache. No paralysis. No paresthesia. Psychiatric: No depression. No anxiety. No mood swings. Endocrine: No abnormal blood sugars. No weight change. No excessive sweating or thirst. No cold intolerance. SOCIAL HISTORY Patient is a lifelong nonsmoker, no illicit drug use, no marijuana use. She is a . 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 FAMILY HISTORY Mother at age 88 from complications following surgery. Father from chronic kidney disease. Patient has 3 brothers and sisters. One sister has history of CVA and dementia. Patient has 2 children with no major medical problems.. PHYSICAL EXAMINATION Gen: This is a 75-year-old female. Patient is resting in bed appears to be comfortable and in no acute distress. HEENT: Head is atraumatic, normocephalic. Pupils equal, round. Sclerae is anicteric. NECK: Supple. No JVD. No lymphadenopathy. No thyromegaly. LUNGS: Clear to auscultation. No wheezes or rhonchi. No intercostal retractions. HEART: Regular rate and rhythm. No murmur. ABDOMEN: Soft. Bowel sounds are present. No masses. No tenderness. EXTREMITIES: No pedal edema. No calf tenderness. Dorsalis pedis palpable bilaterally. NEUROLOGICAL: Patient is awake, alert and oriented x3. Cranial nerves 2 through 12 are grossly intact. ASSESSMENT AND PLAN 1. Chest pain most likely secondary to pleurisy. Cardiology consult apprecia jennie. Echocardiogram and Lexiscan stress test. 2. Gastroesophageal reflux disease. Protonix. 3. Hypertension. Continue amlodipine. Patient placed as an observation status. Discharge plan: Home today if stress test is negative. Impression and plan of care have been directed as dictated by the signing physician. Jasmyn Hoang nurse practitioner acting as scribe for signing physician. Past Medical History Past Medical History: GERD/Reflux, Hypertension History of Any Multi-Drug Resistant Organisms: None Reported Past Surgical History: Hernia Repair, Orthopedic Surgery Additional Past Surgical History / Comment(s): rotator cuff bunion Past Anesthesia/Blood Transfusion Reactions: No Reported Reaction Past Psychological History: No Psychological Hx Reported Smoking Status: Never smoker Past Alcohol Use History: Rare Past Drug Use History: None Reported Medications and Allergies Home Medications Medication Instructions Recorded Confirmed Type Ascorbic Acid [Vitamin C] 1,000 mg PO DAILY 12/22/17 06/02/20 History Cholecalciferol (Vitamin D3) 2,000 unit PO DAILY 12/22/17 06/02/20 History [Vitamin D3] Lecithin, Soy [Lecithin] 400 mg PO DAILY 12/22/17 06/02/20 History [place]-3 Fatty Acids/Fish Oil [Fish 1 cap PO DAILY 12/22/17 06/02/20 History Oil 1,000 mg Softgel] Selenium 100 mcg PO DAILY 12/22/17 06/02/20 History Vitamin B Complex 1 cap PO DAILY 12/22/17 06/02/20 History Meloxicam [Mobic] 7.5 mg PO BID PRN 06/02/20 06/02/20 History Multivitamins, Thera [Multivitamin 1 tab PO DAILY 06/02/20 06/02/20 History (formulary)] Vitamin A 8,000 unit PO DAILY 06/02/20 06/02/20 History amLODIPine [Norvasc] 5 mg PO DAILY 06/02/20 06/02/20 History Pantoprazole Sodium [Protonix] 40 mg PO CONTINUOUS #30 tablet. 06/03/20 Rx Allergies Allergy/AdvReac Type Severity Reaction Status Date / Time aspirin Allergy Unknown Verified 06/02/20 22:46 Penicillins Allergy Unknown Verified 06/02/20 22:46 Childhood Physical Exam Vitals: Vital Signs Temp Pulse Pulse Resp BP BP Pulse Ox 06/03/20 03:10 97.9 F 68 121/68 99 06/03/20 00:50 97.7 F 71 147/70 99 06/02/20 23:59 67 16 140/68 97 06/02/20 21:52 97.5 F L 78 20 146/78 99 Intake and Output 06/02/20 06/03/20 06/03/20 22:59 06:59 14:59 Output Total 350 Balance -350 Output: Urine 350 Other: Voiding Method Toilet # Voids 1 Weight 56.245 kg 56.245 kg Results CBC & Chem 7: 06/02/20 22:50 06/02/20 22:50 Labs: Abnormal Lab Results - Last 24 Hours (Table) 06/02/20 06/02/20 Range/Units 22:50 23:24 Sodium 136 L (137-145) mmol/L BUN 19 H (7-17) mg/dL Glucose 110 H (74-99) mg/dL Urine Ketones 1+ H (Negative) Ur Leukocyte Esterase Trace H (Negative) Urine Mucus Rare H (None) /hpf Thrombosis Risk Factor Assmnt - Choose All That Apply Each Risk Factor Represents 2 Points: Age 61-74 years Thrombosis Risk Factor Assessment Total Risk Factor Score: 2 Thrombosis Risk Factor Assessment Level: Low Risk
--- NOTE | 2020-06-03 15:31 | NM ---
EXAMINATION TYPE: NM stress lexiscan cardiolite DATE OF EXAM: 06/03/2020 COMPARISON: NONE HISTORY: History of hypertension presents with chest pain. TECHNIQUE: After the intravenous administration of 10.7 mCi Tc 99m Sestamibi - Cardiolite resting SP ECT images acquired 45 minutes post injection. The patient received 0.4mg Lexiscan, 25.8 mCi Tc 99m Sestamibi - Stress images obtained [address] injection FINDINGS: Review of stress and rest SPECT images demonstrates no distinct perfusion abnormality. Gated analysi s shows normal wall motion with an estimated left ventricular ejection fraction of 67 %. IMPRESSION: No scintigraphic evidence for reversible ischemia.
[2020-06-03 15:57] VITALS: BP 153/82; PULSE 66; TEMP 97.5
--- NOTE | 2020-06-03 17:50 | P.STRESS ---
- Stress Test Note Stress Test Results/Findings: Exam Performed: NM stress lexiscan cardiolite Exam Date: 06/03/20 Reason for Exam: CHEST PAIN Height: 5 ft 2 in Weight: 56.25 kg Protocol: LEXISCAN CARDIOLITE Stage: N/A Duration of Exercise: N/A Resting Heart Rate: 66 Resting Blood Pressure: 155/82 Maximum Achieved Heart Rate: 94 Maximum Achieved Blood Pressure: 155/82 85% PMHR: 125 100% PMHR: 147 METS: N/A Technologist Comment: Stress Test Results/Findings: At baseline EKG showed normal sinus rhythm, normal axis, no significant ST or T- wave abnormalities. Patient recieved IV infusion of Lexiscan 0.4mg and at peak infusion EKG showed no significant change from baseline. Conclusions: 1. Normal EKG response to Lexiscan infusion 2. Nuclear imaging to be reported separately.
== END 2020-06-03 16:58 | disposition home or self-care (01) ==
LOC: EC 21:52 → 3NCARDOBS 06-03 00:19
PROVIDERS: ADMIT Family Medicine; ATTEND Family Medicine
DX: R07.89 Other chest pain (principal); K21.9 Gastro-esophageal reflux disease without esophagitis; I10 Essential (primary) hypertension; Z20.828 Contact with and (suspected) exposure to other viral communicable diseases; Z79.1 Long term (current) use of non-steroidal anti-inflammatories (NSAID); Z79.899 Other long term (current) drug therapy
CPT/HCPCS: 96361; 96374; 99285; 36415; 93005; 93017; 93306; 80053; 82150; 83690; 84484 ×2; 85025; 81001; 71046; 78452; G0378; U0003; A9500; J2785

== ENCOUNTER → 2021-05-18 | Outpatient (CLI) | payer MEDICARE ==
--- NOTE | 2021-05-18 10:09 | NM ---
EXAMINATION TYPE: NM hepatobiliary w EF DATE OF EXAM: 05/18/2021 COMPARISON: NONE INDICATION: Upper abdominal pain TECHNIQUE: After the intravenous administration of 4.9 mCi Tc 99m Mebrofenin hepatobiliary scintigrap hy is performed. Images were obtained immediately post injection. FINDINGS: There is prompt uptake and excretion of radiotracer by the liver. Extrahepatic ducts are identified at 6 minutes. The gallbladder is visualized within 6 minutes. Small bowel activity is noted within 60 minutes. At one hour 8 ounces of oral ensure plus is given to mimic CCK and gallbladder ejection fraction is c alculated at 75 %, which is in the normal range. (Normal >35% and <80%.). IMPRESSION: 1. Normal hepatobiliary scan
== END | disposition home or self-care (01) ==
LOC: RADNMMAIN 06:59
PROVIDERS: ATTEND Family Medicine
DX: R10.10 Upper abdominal pain, unspecified (principal)
CPT/HCPCS: 78226; A9537

== ENCOUNTER 2024-03-27 02:11 | Emergency (ER) | payer MEDICARE ==
--- NOTE | 2024-04-18 14:11 | CT ---
Site ID [facility] Patient Yuridia English ID [id number] Order # Procedure CT ANGIO CHEST FOR PE EXAMINATION TYPE: CT angio chest CT DLP: 133 mGycm, Automated exposure control for dose reduction was used. DATE OF EXAM: 03/27/2024 11:00 AM COMPARISON: THIS EXAM WAS READ DURING PACS DOWNTIME, NO PRIORS AVAILABLE. . CLINICAL INDICATION: Chest pain TECHNIQUE/CONTRAST: CTA scan of the thorax is performed with IV Contrast, patient injected with 100 mL of Isovue 370, MIP images are created and reviewed these are created on a separate workstation.. FINDINGS: Pulmonary Artery: There is no evidence for a filling defect within the pulmonary vasculature to sugge st acute pulmonary embolism. The pulmonary artery is of normal size. Lungs/Pleura: No evidence of focal consolidation, pleural effusion or pneumothorax. Airway: Large airways are patent. Heart: Heart is within normal limits for size. Vasculature: No evidence of aortic aneurysm. No evidence for dissection. Mediastinum: No gross evidence of adenopathy. Musculoskeletal: No acute osseous abnormalities Soft Tissues/lymph nodes: Unremarkable. Lower neck: Left thyroid gland nodule measuring 25 x 13 mm. More inferiorly another nodule may presen t obscured by streak artifact. Upper Abdomen: No significant findings. IMPRESSION: 1. No evidence of pulmonary embolism, dissection or aneurysm. 2. No thyroid nodules correlate with thyroid ultrasound if not recently performed.
--- NOTE | 2024-04-29 11:13 | XR ---
Site ID [facility] Patient Yuridia English ID [id number] Order # Procedure CHEST TWO VIEWS (PA/LAT) EXAMINATION TYPE: XR chest 2V DATE OF EXAM: 03/27/2024 1:23 PM CLINICAL INDICATION: SOB CHEST PAINS COMPARISON: THIS EXAM WAS READ DURING PACS DOWNTIME, NO PRIORS AVAILABLE. TECHNIQUE: XR chest 2V Frontal view of the chest. FINDINGS: Lungs/Pleura: There is no evidence of pleural effusion, focal consolidation, or pneumothorax. Pulmonary vascularity: Unremarkable. Heart/mediastinum: Cardiomediastinal silhouette is unremarkable. Musculoskeletal: No acute osseous pathology. Other findings: None Lines/Tubes: IMPRESSION: No acute cardiopulmonary disease/process.
== END 2024-03-27 12:00 | disposition home or self-care (01) ==
LOC: EC 02:11
CPT/HCPCS: 71046; 71275; 93005; 99285

== ENCOUNTER → 2024-08-27 | Outpatient (CLI) | payer MEDICARE ==
[2024-08-27 15:43] LABS: African American GFR (CKD) >90 (>60 ml/min/1.73 sqM); Blood Urea Nitrogen 24 mg/dL (7-17); Non-African American GFR(CKD) 86 (>60 ml/min/1.73 sqM)
--- NOTE | 2024-08-27 19:56 | CT ---
EXAMINATION TYPE: CT abdomen pelvis w con DATE OF EXAM: 08/27/2024 5:13 PM COMPARISON: None CLINICAL INDICATION: Female, 79 years old with history of N39.0 URINARY TRACT INFECTION, SITE NOT SPE CIFIED; Slight generalized abd pain and cloudy urine. TECHNIQUE: Axial CT abdomen pelvis w con;Sagittal and coronal reformats were created on a separate w orkstation. Contrast used:100ml mL of Isovue 300 with IV Contrast, (none if empty) Oral contrast used: with Oral Contrast (none if empty) CT DLP: 329.2 mGycm, Automated exposure control for dose reduction was used. FINDINGS: LOWER CHEST: Unremarkable ABDOMEN LIVER: Unremarkable GALLBLADDER AND BILE DUCTS: Unremarkable. PANCREAS: Unremarkable. SPLEEN: Unremarkable. ADRENAL GLANDS: Unremarkable. KIDNEYS AND URETERS: No evidence of hydronephrosis or renal calculus. The ureters are unremarkable. PELVIS BLADDER: Chest when in the nondependent portion of the urinary bladder. REPRODUCTIVE: Uterus is poorly visualized due to atrophy and fat stranding changes in the pelvis. ABDOMEN & PELVIS STOMACH AND BOWEL: No evidence of bowel obstruction. Abnormal appearance of the posterior pelvis with wall thickening present of the sigmoid colon. Uterus may be present but is obscured by Fat stranding changes. PERITONEUM/RETROPERITONEUM: No evidence of pneumoperitoneum or free fluid. VASCULATURE: Mild atherosclerotic calcifications are present throughout the abdominal aorta and its b ranches. No evidence of aortic aneurysm. MUSCULOSKELETAL: No acute osseous abnormalities. Moderate disc degeneration changes are present throu ghout the thoracolumbar spine. Grade 1 anterolisthesis of L4 on L5. Moderate multilevel LYMPH NODES: No gross evidence for lymphadenopathy. SOFT TISSUE/ABDOMINAL WALL: Unremarkable IMPRESSION: Colitis/diverticulitis of the sigmoid colon. Gas in the urinary bladder lumen could represent fistulo us tract in appropriate clinical setting from the inflammation/infection. Correlate with urinalysis. The Entire pelvis is poorly visualized due to extensive fat stranding changes. Clinical correlation a nd surveillance with short-term follow-up CT recommended after treatment to ensure resolution. Underl fercho malignancy is not excluded at this time. No organizing fluid collection definitively. [facility], , 08/27/2024 7:53 PM
== END | disposition home or self-care (01) ==
LOC: RADCTMAIN 14:50
PROVIDERS: ATTEND Family Medicine
DX: N39.0 Urinary tract infection, site not specified (principal); K57.32 Diverticulitis of large intestine without perforation or abscess without bleeding; K52.9 Noninfective gastroenteritis and colitis, unspecified
CPT/HCPCS: 82565; 84520; 74177; 36415; Q9967

== ENCOUNTER → 2024-10-31 | Outpatient (CLI) | payer MEDICARE ==
[2024-10-31 14:57] LABS: Basophils # (A) 0.06 X 10*3/uL (0.00-0.10); Basophils % (A) 0.7 %; Eosinophils # (A) 0.07 X 10*3/uL (0.04-0.35); Eosinophils % (A) 0.8 %; HCT 35.6 % (37.2-46.3); HGB 11.8 g/dL (12.0-15.0); Lymphocytes # (A) 1.28 X 10*3/uL (0.90-5.00); Lymphocytes % (A) 14.1 %; MCH 29.3 pg (27.0-32.0); MCHC 33.1 g/dL (32.0-37.0); MCV 88.3 FL (80.0-97.0); Mean Platelet Volume 9.4 FL (9.5-12.2); Monocytes # (A) 0.64 X 10*3/uL (0.20-1.00); Monocytes % (A) 7.1 %; NRBC Per 100 WBC 0 X 10*3/uL (0.00-0.01); Neutrophils # (A) 6.97 X 10*3/uL (1.80-7.70); Platelet Count 418 X 10*3/uL (140-440); RBC 4.03 X 10*6/uL (4.10-5.20); RDW 13.9 % (11.5-14.5); WBC 9.05 X 10*3/uL (4.50-10.00)
[2024-10-31 15:21] LABS: BUN/Creat Ratio 22.83 Ratio (12.00-20.00); Blood Urea Nitrogen 13.7 mg/dL (9.0-27.0); Carbon Dioxide 24.7 mmol/L (21.6-31.8); Chloride 96 mmol/L (96-109); Glucose 114 mg/dL (70-110); Potassium 4.2 mmol/L (3.5-5.5); Sodium 132 mmol/L (135-145)
[2024-10-31 15:22] LABS: ALT 14 U/L (8-44); AST 18 U/L (13-35); Albumin 3.8 g/dL (3.8-4.9); Albumin/Globulin Ratio 1.31 Ratio (1.60-3.17); Alkaline Phosphatase 95 U/L (41-126); Globulin 2.9 g/dL (1.6-3.3); Total Bilirubin 0.3 mg/dL (0.3-1.2); Total Protein 6.7 g/dL (6.2-8.2)
[2024-10-31 18:25] LABS: Appearance,Urine Turbid (Clear); Bacteria,Urine 4+ (None Seen); Bilirubin,Urine Moderate (Negative); Blood,Urine Large (Negative); Color,Urine BROWN; Ketones,Urine Trace (Negative); Nitrite,Urine Positive (Negative); PH, Urine 8.5 (4.0-8.0); Triple Phosphate Crystal,Urine Present (None Seen)
== END | disposition home or self-care (01) ==
LOC: LABWHC1 11:44
PROVIDERS: ATTEND Family Medicine
DX: I10 Essential (primary) hypertension (principal); N32.1 Vesicointestinal fistula
CPT/HCPCS: 36415; 80053; 81001; 83605; 84145; 85025; 87086